=== PATIENT | male | born 1980 | race American Indian/Alaskan Native ===

== ENCOUNTER 2016-10-07 11:30 | Emergency (ER) | payer SELFPAY ==
[2016-10-07 12:06] LABS: Urine Drugs of Abuse Note Disclamer
[2016-10-07 12:19] LABS: Basophils % (Auto) 0.7 % (0.0-1.8); Eosinophils % (Auto) 0.6 % (0.0-4.3); Hematocrit 46.1 % (35.5-45.6); Hemoglobin 15.6 gm/dl (11.8-15.2); Mean Corpuscular HGB Conc 34 % (32-34); Mean Corpuscular Hemoglobin 32 pg (28-32); Mean Corpuscular Volume 93 fl (84-94); Platelet Count 232 K/mm3 (140-440); Red Blood Count 4.97 M/mm3 (3.65-5.03); White Blood Count 8.4 K/mm3 (4.5-11.0)
[2016-10-07 12:21] LABS: Bilirubin,Urine NEG (Negative); Blood,Urine NEG (Negative); Ketones,Urine NEG (Negative); Leukocyte Esterase,Urine NEG (Negative); Mucus,Urine FEW /HPF; Nitrite,Urine NEG (Negative); Urobilinogen,Urine < 2.0 mg/dL (<2.0)
[2016-10-07 12:30] LABS: Anion Gap 17 mmol/L; BUN/Creatinine Ratio 7.14; Blood Urea Nitrogen 5 mg/dL (9-20); Calcium 9.1 mg/dL (8.4-10.2); Carbon Dioxide 27 mmol/L (22-30); Chloride 100.9 mmol/L (98-107); Glucose 101 mg/dL (75-100); Potassium 3.7 mmol/L (3.6-5.0); Sodium 141 mmol/L (137-145)
[2016-10-07] MEDS ORDERED: APRESOLINE IV ONE (13:58)
--- NOTE | 2016-10-07 14:12 | Emergency Department Report ---
HPI - General Chief Complaint: Overdose Time Seen by Provider: 10/07/16 13:39 - HPI HPI: This is a 36-year-old -[place] male presents to the emergency department with complaint of some nausea and vomiting that occurred starting this morning after the patient had polysubstance abuse last night that included alcohol, Porsha, cocaine and 2 Percocet. He is also a tobacco smoker. He has a history of hypertension but has never been on pressure medication. Patient drink some Pedialyte earlier and says that he is feeling improved. He denies any vision changes, slurred speech, chest pain, shortness of breath. No recent travel or sick contacts at home. He does not have a primary care physician. ED Past Medical Hx - Past Medical History Previous Medical History?: Yes Hx Hypertension: Yes - Surgical History Past Surgical History?: No - Social History Smoking Status: Current Every Day Smoker Substance Use Type: Alcohol - Medications Home Medications: Home Medications Medication Instructions Recorded Confirmed Last Taken Type Albuterol Sulfate [Ventolin HFA] 2 puff IH Q4H PRN #1 hfa.aer.ad 02/03/13 Unknown Rx Loratadine [Claritin] 10 mg PO DAILY #30 tablet 02/03/13 Unknown Rx Oseltamivir [Tamiflu] 75 mg PO BID #10 cap 02/03/13 Unknown Rx Prednisone 40 mg PO QDAY #10 tablet 02/03/13 Unknown Rx Promethazine /Codeine 5 ml PO Q6H PRN #120 udc 02/03/13 Unknown Rx [Phenergan/Codeine 6.25-10 mg/5 ml] Sulfamethoxazole/Trimethoprim 1 each PO BID #20 tablet 02/03/13 Unknown Rx [Bactrim DS] amLODIPine [Norvasc] 5 mg PO DAILY #30 tab 10/07/16 Unknown Rx ED Review of Systems ROS: Stated complaint: POSS OVERDOSE Other details as noted in HPI Comment: All other systems reviewed and negative Constitutional: denies: chills, fever Eyes: denies: eye pain, eye discharge, vision change ENT: denies: ear pain, throat pain Respiratory: denies: cough, shortness of breath, wheezing Cardiovascular: denies: chest pain, palpitations Gastrointestinal: nausea, vomiting Genitourinary: denies: urgency, dysuria Musculoskeletal: denies: back pain, joint swelling, arthralgia Skin: denies: rash, lesions Neurological: denies: weakness, numbness Physical Exam - Physical Exam Vital Signs: Vital Signs 10/07/16 10/07/16 11:32 13:28 Temperature 98 F 98.9 F Pulse Rate 71 65 Respiratory 18 20 Rate Blood Pressure 181/125 Blood Pressure 143/74 [Left] O2 Sat by Pulse 97 99 Oximetry Physical Exam: GENERAL: The patient is well-developed well-nourished. HEENT: Normocephalic. Atraumatic. Extraocular motions are intact. Patient has moist mucous membranes. Pupils equal reactive to light bilaterally. NECK: Supple. Trachea is midline. CHEST/LUNGS: Clear to auscultation. There is no respiratory distress noted. HEART/CARDIOVASCULAR: Regular. There is no tachycardia. There is no gallop rub or murmur. ABDOMEN: Abdomen is soft, nontender. Patient has normal bowel sounds. There is no abdominal distention. SKIN: Skin is warm and dry. NEURO: The patient is awake, alert, and oriented. The patient is cooperative. The patient has no focal neurologic deficits. The patient has normal speech. Cranial nerves II through XII grossly intact. MUSCULOSKELETAL: There is no tenderness or deformity. There is no limitation range of motion. There is no evidence of acute injury. ED Course Vital Signs 10/07/16 10/07/16 11:32 13:28 Temperature 98 F 98.9 F Pulse Rate 71 65 Respiratory 18 20 Rate Blood Pressure 181/125 Blood Pressure 143/74 [Left] O2 Sat by Pulse 97 99 Oximetry ED Medical Decision Making - Lab Data Result diagrams: 10/07/16 12:00 10/07/16 12:00 - EKG Data -: EKG Interpreted by In EKG shows normal: sinus rhythm, axis, intervals, QRS complexes, ST-T waves ( isolated T-wave inversion in lead 3) Rate: normal - EKG Data When compared to previous EKG there are: previous EKG unavailable Interpretation: other (isolated T-wave inversion in lead 3) - Medical Decision Making 36-year-old male presents with some nausea and vomiting after polysubstance abuse last night. However the nausea has resolved and the patient was able to eat a meal and keep down fluid without any further nausea or vomiting. Vital signs are stable but the patient does have some hypertension with a history of hypertension without being on medications. He was given a small dose of hydralazine and his blood pressure has come down to a reasonable level. However I will start him on a medium dose of amlodipine. We discussed tobacco cessation and avoidance of polysubstance. He'll be given referrals for primary care. The rest of his labs are unremarkable. He will return with any worsening of symptoms or any acute distress. - Differential Diagnosis hypertensive urgency, polysubstance abuse, Critical Care Time: No Critical care attestation.: If time is entered above; I have spent that time in minutes in the direct care of this critically ill patient, excluding procedure time. ED Disposition Clinical Impression: Polysubstance abuse Hypertension Qualifiers: Hypertension type: essential hypertension Qualified Code(s): I10 - Essential ( primary) hypertension Disposition: TO HOME OR SELFCARE Is pt being admited?: No Condition: Stable Instructions: Hypertension (ED), Polysubstance Abuse (ED) Additional Instructions: Please follow-up with a primary care physician in the next few days. Return to the emergency department with any worsening of your symptoms or any acute distress. Please try and quit smoking. Stay away from foods that are high in salt and caffeinated products to help with your blood pressure. I have started you on a blood pressure medication called Norvasc/amlodipine to be taken once daily. Keep a blood pressure log. Prescriptions: amLODIPine [Norvasc] 5 mg PO DAILY #30 tab Referrals: PRIMARY CARE, [Primary Care Provider] - 3-5 Days [facility] [Outside] - 3-5 Days [facility] [Outside] - 3-5 Days [facility] [Outside] - 3-5 Days [facility] [Outside] - 3-5 Days Time of Disposition: 15:26
[2016-10-07 15:48] VITALS: BP 150/93
== END 2016-10-07 15:58 | disposition home or self-care (01) ==
LOC: ED 11:30
DX: F19.10 Other psychoactive substance abuse, uncomplicated (principal); I10 Essential (primary) hypertension; F17.200 Nicotine dependence, unspecified, uncomplicated
CPT/HCPCS: 36415; 80048; 80307; 81001; 85025; 96374; 99283; G0480; J0360; 80320

== ENCOUNTER 2017-06-12 19:43 | Emergency (ER) | payer SELFPAY ==
[2017-06-12] MEDS ORDERED: ASPIRIN PO ONE (20:13)
[2017-06-12] MEDS ORDERED: ASPIRIN ONE (20:13)
[2017-06-12 20:46] LABS: BUN/Creatinine Ratio 11; Blood Urea Nitrogen 9 mg/dL (9-20); Hemolysis Index 8
[2017-06-12 21:03] LABS: Hematocrit 47.4 % (35.5-45.6); Hemoglobin 15.7 gm/dl (11.8-15.2); Mean Corpuscular HGB Conc 33 % (32-34); Mean Corpuscular Hemoglobin 31 pg (28-32); Mean Corpuscular Volume 94 fl (84-94); Platelet Count 217 K/mm3 (140-440); Red Blood Count 5.05 M/mm3 (3.65-5.03); Red Cell Distribution Width 13.3 % (13.2-15.2)
[2017-06-12 21:08] LABS: Lymphocytes % (Auto) 40.3 % (13.4-35.0); Monocytes % (Auto) 10.8 % (0.0-7.3)
[2017-06-12 21:09] LABS: Basophils % (Auto) 0.6 % (0.0-1.8); Eosinophils % (Auto) 0.6 % (0.0-4.3); Lymphocytes # (Auto) 2.7 K/mm3 (1.2-5.4); Monocytes # (Auto) 0.7 K/mm3 (0.0-0.8)
--- NOTE | 2017-06-12 23:14 | XRay Report ---
FINAL REPORT PROCEDURE: XR CHEST ROUTINE 2V TECHNIQUE: Chest radiograph posteroanterior projection. CPT 96948 HISTORY: chest pain COMPARISON: No prior studies are available for comparison. FINDINGS: Heart: Normal. Mediastinum/Vessels: Normal. Lungs/Pleural space: Normal. Bony thorax: No acute osseous abnormality. IMPRESSION: Normal examination
--- NOTE | 2017-06-12 23:18 | Emergency Department Report ---
ED Chest Pain HPI - General Chief Complaint: Chest Pain Stated Complaint: CHEST PAIN Time Seen by Provider: 06/12/17 22:32 Source: patient Mode of arrival: Ambulatory Limitations: No Limitations - History of Present Illness Initial Comments: Patient's had profound 7:30 PM he started having left-sided chest pain of moderate intensity radiating to his back with no relieving factor and aggravated when he moves in certain directions. Patient said the pain started after he had a heavy meal at [facility]. MD Complaint: chest pain -: Gradual Onset: during rest Pain Location: left chest Pain Radiation: back Severity: moderate Severity scale (0 -10): 7 Quality: aching Consistency: constant Improves With: nothing Worsens With: movement Treatments Prior to Arrival: none Aspirin use within the Past 7 Days: (0) No - Related Data Home Medications Medication Instructions Recorded Confirmed Last Taken No Known Home Medications [No 06/12/17 06/12/17 Unknown Reported Home Medications] Allergies Allergy/AdvReac Type Severity Reaction Status Date / Time No Known Allergies Allergy Unverified 02/03/13 19:54 Heart Score - HEART Score History: Slightly suspicious EKG: Normal Age: < 45 Risk factors: 1-2 risk factors Troponin: < normal limit HEART Score: 1 ED Review of Systems ROS: Stated complaint: CHEST PAIN Other details as noted in HPI Comment: All other systems reviewed and negative ED Past Medical Hx - Past Medical History Previous Medical History?: Yes Hx Hypertension: Yes - Social History Smoking Status: Current Every Day Smoker - Medications Home Medications: Home Medications Medication Instructions Recorded Confirmed Last Taken Type No Known Home Medications [No 06/12/17 06/12/17 Unknown History Reported Home Medications] ED Physical Exam - General Limitations: No Limitations General appearance: alert, in no apparent distress - Head Head exam: Present: atraumatic, normocephalic - Eye Eye exam: Present: normal appearance - ENT ENT exam: Present: mucous membranes moist - Neck Neck exam: Present: normal inspection - Respiratory Respiratory exam: Present: normal lung sounds bilaterally. Absent: respiratory distress - Cardiovascular Cardiovascular Exam: Present: regular rate, normal rhythm, other (tenderness to palpation of the left side of the chest wall). Absent: systolic murmur, diastolic murmur, rubs, gallop - GI/Abdominal GI/Abdominal exam: Present: soft, normal bowel sounds. Absent: tenderness - Rectal Rectal exam: Present: deferred - Extremities Exam Extremities exam: Present: normal inspection - Back Exam Back exam: Present: normal inspection - Neurological Exam Neurological exam: Present: alert, oriented X3 - Psychiatric Psychiatric exam: Present: normal affect, normal mood - Skin Skin exam: Present: warm, dry, intact, normal color. Absent: rash ED Course Vital Signs 06/12/17 06/12/17 06/12/17 20:06 20:53 21:07 Temperature 97.6 F Pulse Rate 64 63 Respiratory 20 16 14 Rate Blood Pressure 164/108 153/102 Blood Pressure [Left] O2 Sat by Pulse 99 97 98 Oximetry 06/12/17 06/12/17 22:21 23:44 Temperature 97.6 F Pulse Rate 62 65 Respiratory 20 12 Rate Blood Pressure 156/111 Blood Pressure 147/70 [Left] O2 Sat by Pulse 98 99 Oximetry ED Medical Decision Making - Lab Data Result diagrams: 06/12/17 20:18 06/12/17 20:18 - EKG Data -: EKG Interpreted by Me EKG shows normal: sinus rhythm (normal), axis (normal), intervals (normal), QRS complexes (normal), ST-T waves (normal) - Radiology Data Radiology results: image reviewed (no widened mediastinum) Critical care attestation.: If time is entered above; I have spent that time in minutes in the direct care of this critically ill patient, excluding procedure time. ED Disposition Clinical Impression: Atypical chest pain Disposition: DC-01 TO HOME OR SELFCARE Is pt being admited?: No Does the pt Need Aspirin: No Condition: Stable Instructions: Chest Pain (ED), Costochondritis (ED) Additional Instructions: take Tylenol or Motrin as needed for pain Referrals: DAVID KINSEY MD [Primary Care Provider] - 3-5 Days Forms: Work/School Release Form(ED) Time of Disposition: 23:53 Print Language: VENEZUELAN
[2017-06-12 23:44] VITALS: BP 147/70
== END 2017-06-13 00:10 | disposition home or self-care (01) ==
LOC: ED 19:43
DX: R07.89 Other chest pain (principal); I10 Essential (primary) hypertension; F17.200 Nicotine dependence, unspecified, uncomplicated; E16.2 Hypoglycemia, unspecified
CPT/HCPCS: 36415; 71046; 80048; 82962; 84484; 85025; 85379; 93005; 93010; 99284